=== PATIENT | female | born 1965 | race Caucasian/White ===

== ENCOUNTER 2016-09-18 09:42 | Outpatient (CLI) | payer MEDICAID | END 2016-09-18 09:43 | disposition home or self-care (01) | DX: R53.83 Other fatigue (principal) ==

== ENCOUNTER 2016-12-08 09:58 | Outpatient (CLI) | payer OTHER | END 2016-12-08 09:59 | disposition home or self-care (01) | DX: E04.9 Nontoxic goiter, unspecified (principal) ==

== ENCOUNTER 2017-02-24 16:45 | Outpatient (CLI) | payer OTHER ==
--- NOTE | 2017-02-25 12:27 | XRAY Report ---
TWO-VIEW CHEST: 02/24/2017 CLINICAL INDICATION: Cough. FINDINGS: Frontal and lateral views of the chest demonstrate a normal cardiac silhouette. The lungs are clear. No effusion or pneumothorax is present. IMPRESSION: NORMAL CHEST. JOB #: [id number] EXT JOB #:[id number]
== END 2017-02-24 16:46 | disposition home or self-care (01) ==
LOC: DI.S 16:45
PROVIDERS: ATTEND Nurse Practitioner Family
DX: R05 Cough (principal)
CPT/HCPCS: 71020

== ENCOUNTER 2018-06-27 08:00 | Outpatient (CLI) | payer MEDICAID, OTHER ==
[2018-06-27 18:04] LABS: BASOPHILS # (AUTO) 0.1 10^3/uL (0.0-0.1); BASOPHILS % (AUTO) 1.8 %; EOSINOPHILS # (AUTO) 0.1 10^3/uL (0.0-0.7); EOSINOPHILS % (AUTO) 2.2 %; HGB - HEMOGLOBIN 14.8 g/dL (12.0-16.0); LYMPHOCYTES # (AUTO) 1.8 10^3/uL (1.5-3.5); LYMPHOCYTES % (AUTO) 44.1 %; MEAN CORPUSCULAR HEMOGLOBIN 32.3 pg (27.0-31.0); MEAN CORPUSCULAR HGB CONC 33.5 g/dL (32.0-36.0); MEAN CORPUSCULAR VOLUME 96.4 fL (81.0-99.0); MEAN PLATELET VOLUME 9.3 fL (7.9-10.8); MONOCYTES # (AUTO) 0.3 10^3/uL (0.0-1.0); MONOCYTES % (AUTO) 8.4 %; NEUTROPHILS # (AUTO) 1.8 10^3/uL (1.5-6.6); NEUTROPHILS % (AUTO) 43.5 %; PLT - PLATELET COUNT 268 10^3/uL (130-450); RED BLOOD COUNT 4.58 10^6/uL (4.20-5.40); RED CELL DISTRIBUTION WIDTH 12.9 % (12.0-15.0); WHITE BLOOD COUNT 4.1 x10^3/uL (4.8-10.8)
[2018-06-27 18:21] LABS: ALBUMIN 4.1 g/dL (3.2-5.5); ALBUMIN/GLOBULIN RATIO 1.2 (1.0-2.2); ALKALINE PHOSPHATASE 57 IU/L (42-121); ALT ALANINE AMINOTRANSFERASE 34 IU/L (10-60); AST ASPARTATE AMINOTRANSFERASE 29 IU/L (10-42); BILIRUBIN,TOTAL 0.7 mg/dL (0.2-1.0); BUN - BLOOD UREA NITROGEN 19 mg/dL (6-20); CALCIUM 9.2 mg/dL (8.5-10.3); CARBON DIOXIDE - CO2 28 mmol/L (21-32); CHLORIDE 103 mmol/L (101-111); CHOL/HDL RATIO 3.4 (<4.4); CHOLESTEROL 213 mg/dL; CREATININE 0.5 mg/dL (0.4-1.0); GFR - MDRD 131 (>89); GLUCOSE 89 mg/dL (70-100); HDL CHOLESTEROL 62 mg/dL; LDL CHOLESTEROL,CALCULATED 141 mg/dL; LDL/HDL RATIO 2.3 (<4.4); SODIUM 136 mmol/L (135-145); TOTAL PROTEIN 7.6 g/dL (6.7-8.2); VLDL CHOLESTEROL 10 mg/dL
[2018-06-27 18:36] LABS: THYROID STIMULATING HORMONE 0.91 uIU/mL (0.34-5.60)
[2018-06-27 18:38] LABS: FREE T4 (FREE THYROXINE) 0.88 ng/dL (0.58-1.64)
== END 2018-06-27 23:59 | disposition home or self-care (01) ==
LOC: LAB.S 08:00
PROVIDERS: ATTEND Nurse Practitioner Family
DX: Z01.812 Encounter for preprocedural laboratory examination (principal); I10 Essential (primary) hypertension; Z13.220 Encounter for screening for lipoid disorders; E04.0 Nontoxic diffuse goiter; R53.83 Other fatigue
CPT/HCPCS: 36415; 80053; 80061; 83721; 84439; 84443; 84481; 85025

== ENCOUNTER 2019-04-26 11:04 | Outpatient (CLI) | payer MEDICAID ==
[2019-04-26 17:24] LABS: BASOPHILS # (AUTO) 0.1 10^3/uL (0.0-0.1); BASOPHILS % (AUTO) 1.2 %; EOSINOPHILS # (AUTO) 0.1 10^3/uL (0.0-0.7); EOSINOPHILS % (AUTO) 2.2 %; HGB - HEMOGLOBIN 14.4 g/dL (12.0-16.0); LYMPHOCYTES # (AUTO) 1.4 10^3/uL (1.5-3.5); LYMPHOCYTES % (AUTO) 34.1 %; MEAN CORPUSCULAR HEMOGLOBIN 32.7 pg (27.0-31.0); MEAN CORPUSCULAR VOLUME 96.4 fL (81.0-99.0); MEAN PLATELET VOLUME 10.9 fL (7.9-10.8); MONOCYTES # (AUTO) 0.4 10^3/uL (0.0-1.0); MONOCYTES % (AUTO) 9.1 %; NEUTROPHILS # (AUTO) 2.2 10^3/uL (1.5-6.6); NEUTROPHILS % (AUTO) 53.2 %; PLT - PLATELET COUNT 275 10^3/uL (130-450); RED CELL DISTRIBUTION WIDTH 12.3 % (12.0-15.0); WHITE BLOOD COUNT 4.1 x10^3/uL (4.8-10.8)
[2019-04-26 17:27] LABS: BILIRUBIN,URINE NEGATIVE (NEGATIVE); GLUCOSE, URINE (UA) NEGATIVE (NEGATIVE); KETONES,URINE (UA) NEGATIVE (NEGATIVE); LEUKOCYTE ESTERASE, URINE NEGATIVE (NEGATIVE); NITRITE,URINE NEGATIVE (NEGATIVE); OCCULT BLOOD,URINE NEGATIVE (NEGATIVE); PH,URINE 7.5 PH (5.0-7.5); PROTEIN,URINE NEGATIVE (NEGATIVE); UROBILINOGEN,URINE 0.2 (NORMAL) E.U./dL (NORMAL)
[2019-04-26 17:50] LABS: BACTERIA,URINE Moderate /HPF (None Seen); CLARITY,URINE CLEAR (CLEAR); RBC,URINE None Seen /HPF (0-5); SQUAMOUS EPITHELIAL CELL,UR MANY Squamous (<= Few)
[2019-04-26 17:51] LABS: HB2 TOTAL 14.6 g/dL; HEMOGLOBIN A1C 0.52 g/dL; HEMOGLOBIN A1C % 5.4 % (4.6-6.2)
[2019-04-26 17:55] LABS: THYROID STIMULATING HORMONE 0.88 uIU/mL (0.34-5.60)
[2019-04-26 17:57] LABS: FREE T4 (FREE THYROXINE) 0.95 ng/dL (0.58-1.64)
[2019-04-26 17:59] LABS: ALBUMIN 3.9 g/dL (3.2-5.5); ALBUMIN/GLOBULIN RATIO 1.1 (1.0-2.2); ALKALINE PHOSPHATASE 46 IU/L (42-121); ALT ALANINE AMINOTRANSFERASE 28 IU/L (10-60); AST ASPARTATE AMINOTRANSFERASE 27 IU/L (10-42); BILIRUBIN,TOTAL 0.8 mg/dL (0.2-1.0); BUN - BLOOD UREA NITROGEN 16 mg/dL (6-20); CALCIUM 8.8 mg/dL (8.5-10.3); CARBON DIOXIDE - CO2 28 mmol/L (21-32); CHLORIDE 101 mmol/L (101-111); CHOL/HDL RATIO 2.9 (<4.4); CHOLESTEROL 216 mg/dL; CREATININE 0.6 mg/dL (0.4-1.0); CRP HIGH SENSITIVITY 3.3 mg/L; GAMMA GLUTAMYL TRANSPEPTIDASE 26 IU/L (8-38); GFR - MDRD 105 (>89); GLUCOSE 98 mg/dL (70-100); HDL CHOLESTEROL 75 mg/dL; LDL CHOLESTEROL,CALCULATED 131 mg/dL; LDL/HDL RATIO 1.7 (<4.4); SODIUM 135 mmol/L (135-145); TOTAL PROTEIN 7.6 g/dL (6.7-8.2); VLDL CHOLESTEROL 10 mg/dL
[2019-04-26 18:02] LABS: FERRITIN 41.3 ng/mL (11.0-306.8); TOTAL T3 0.94 ng/mL (0.87-1.78)
[2019-04-27 10:11] LABS: HOMOCYSTEINE 10.3 umol/L (<10.4)
== END 2019-04-26 11:05 | disposition home or self-care (01) ==
LOC: LAB.S 11:04
PROVIDERS: ATTEND Family Medicine
DX: Z00.00 Encounter for general adult medical examination without abnormal findings (principal); E55.9 Vitamin D deficiency, unspecified; R94.5 Abnormal results of liver function studies; D64.9 Anemia, unspecified; D72.819 Decreased white blood cell count, unspecified; R53.83 Other fatigue; R94.6 Abnormal results of thyroid function studies; I10 Essential (primary) hypertension
CPT/HCPCS: 36415; 80053; 80061; 81001; 82306; 82626; 82728; 82977; 83036; 83090; 83721; 84439; 84443; 84480; 84481; 84482; 85025; 86141

== ENCOUNTER 2019-06-06 11:30 | Outpatient (CLI) | payer MEDICAID ==
--- NOTE | 2019-06-07 09:45 | XRAY Report ---
Reason: CHRONIC COUGH, R05 Procedure Date: 06/06/2019 Accession Number: [id number] / [id number] Procedure: XRS - Chest 2 View X-Ray CPT Code: 00085 Final Report FULL RESULT: EXAM: CHEST RADIOGRAPHY EXAM DATE: 06/06/2019 11:47 AM. CLINICAL HISTORY: CHRONIC COUGH, R05. COMPARISON: CHEST 2 VIEW PA/LAT 02/24/2017 4:58 PM. TECHNIQUE: 2 views. FINDINGS: Lungs/Pleura: No focal opacities evident. No pleural effusion. No pneumothorax. Normal volumes. Mediastinum: Heart and mediastinal contours are unremarkable. Other: Spine degenerative disk disease redemonstrated. IMPRESSION: No acute abnormality of the chest demonstrated. RADIA
== END 2019-06-06 11:31 | disposition home or self-care (01) ==
LOC: DI.S 11:30
PROVIDERS: ATTEND Naturopath
DX: R05 Cough (principal)
CPT/HCPCS: 71046

== ENCOUNTER 2019-11-09 17:16 | Outpatient (CLI) | payer MEDICAID | END 2019-11-09 17:17 | disposition home or self-care (01) | LOC: COV 17:16 | PROVIDERS: ATTEND Family Medicine | DX: R05 Cough (principal) | CPT/HCPCS: 81599 ==

== ENCOUNTER 2020-09-18 11:30 | Outpatient (CLI) | payer MEDICAID | END 2020-09-18 11:31 | disposition home or self-care (01) | LOC: COV 11:30 | PROVIDERS: ATTEND Internal Medicine Gastroenterology | DX: Z20.822 Contact with and (suspected) exposure to COVID-19 (principal) ==

== ENCOUNTER 2021-08-25 13:48 | Outpatient (CLI) | payer MEDICAID ==
--- NOTE | 2021-08-25 16:24 | XRAY Report ---
PROCEDURE: Shoulder 3 View RT INDICATIONS: CHRONIC LOW BACK PAIN, RIGHT SHOULDER PAIN TECHNIQUE: 3 views of the shoulder were acquired. COMPARISON: None. FINDINGS: Bones: No fractures or dislocations. No suspicious bony lesions. Visualized ribs appear intact. M ild periarticular osteophyte formation at the acromioclavicular and glenohumeral joints. Soft tissues: No suspicious soft tissue calcifications. IMPRESSION: 1. Osteoarthritis. 2. No acute fracture. No osseous lesion. If symptoms and/or clinical suspicion for pathology continue , further assessment with repeat plain films, or advanced imaging (e.g., CT, MRI, or bone scan) is re commended for further assessment. Reviewed by: Dez Fontana MD on 08/25/2021 4:23 PM PST Approved by: Dez Fontana MD on 08/25/2021 4:23 PM PST Station ID: [id number]
--- NOTE | 2021-08-25 17:24 | XRAY Report ---
PROCEDURE: SI Joints INDICATIONS: CHRONIC LOW BACK PAIN, RIGHT SHOULDER PAIN TECHNIQUE: 3 views of the sacroiliac joints were acquired. COMPARISON: None FINDINGS: Bones: No bony erosions or ankylosis. No suspicious bony lesions. No fractures. Severe L5-S1 degen erative disc changes. Moderate L4-L5 degenerative disc changes. Soft tissues: Overlying bowel gas pattern is normal. No suspicious soft tissue densities. Intrauter ine device projects over the mid pelvis. IMPRESSION: 1. Sacroiliac joints are normal in appearance. 2. Lumbar spine degenerative disc disease. Reviewed by: Trang Benítez MD, PhD on 08/25/2021 5:23 PM PST Approved by: Trang Benítez MD, PhD on 08/25/2021 5:23 PM PST Station ID: [id number]
--- NOTE | 2021-08-25 17:25 | XRAY Report ---
PROCEDURE: Hips 2V BILAT INDICATIONS: CHRONIC LOW BACK PAIN, RIGHT SHOULDER PAIN TECHNIQUE: 2 views of the right hip and left hip were acquired. COMPARISON: None FINDINGS: Bones: No fractures or dislocations. No suspicious bony lesions. The visualized pelvic ring appear s intact. Mild osseous hypertrophy noted in the hips bilaterally compatible with mild osteoarthritis. Degenerative disc changes noted in the lower lumbar spine. Soft tissues: No suspicious soft tissue calcifications or masses. IMPRESSION: Mild bilateral hip osteoarthritis. Reviewed by: Trang Benítez MD, PhD on 08/25/2021 5:24 PM PST Approved by: Trang Benítez MD, PhD on 08/25/2021 5:24 PM PST Station ID: [id number]
== END 2021-08-25 13:49 | disposition home or self-care (01) ==
LOC: DI.S 13:48
PROVIDERS: ATTEND Naturopath
DX: M25.811 Other specified joint disorders, right shoulder (principal); M16.0 Bilateral primary osteoarthritis of hip; M51.36 Other intervertebral disc degeneration, lumbar region; M51.37 Other intervertebral disc degeneration, lumbosacral region; M19.011 Primary osteoarthritis, right shoulder

== ENCOUNTER 2021-11-28 12:57 | Outpatient (CLI) | payer MEDICAID ==
--- NOTE | 2021-11-28 15:53 | XRAY Report ---
PROCEDURE: Shoulder 3 View LT INDICATIONS: CHRONIC LEFT SHOULDER PAIN TECHNIQUE: 3 views of the shoulder were acquired. COMPARISON: None. FINDINGS: Bones: No fractures or dislocations. Moderate acromioclavicular joint and glenohumeral joint osteoar thritic changes are seen. No suspicious bony lesions. Visualized ribs appear intact. Soft tissues: No suspicious soft tissue calcifications. IMPRESSION: Moderate left shoulder joint osteoarthritis. No fracture or dislocation. No gross soft t issue abnormality. Reviewed by: Keenan Fowler MD on 11/28/2021 3:52 PM PDT Approved by: Keenan Fowler MD on 11/28/2021 3:52 PM PDT Station ID: [id number]
--- NOTE | 2021-11-28 15:53 | XRAY Report ---
PROCEDURE: Chest 2 View X-Ray INDICATIONS: ABNORMAL LUNG SOUNDS IN LEFT UPPER LOBE TECHNIQUE: 2 view(s) of the chest. COMPARISON: None. FINDINGS: Surgical changes and devices: None. Lungs and pleura: No pleural effusions or pneumothorax. Lungs are clear. Mediastinum: Mediastinal contours are normal. Heart size is normal. Bones and chest wall: No suspicious bony abnormalities. Soft tissues appear unremarkable. IMPRESSION: No acute cardiopulmonary pathology. Reviewed by: Keenan Fowler MD on 11/28/2021 3:52 PM PDT Approved by: Keenan Fowler MD on 11/28/2021 3:52 PM PDT Station ID: [id number]
== END 2021-11-28 12:58 | disposition home or self-care (01) ==
LOC: DI.S 12:57
PROVIDERS: ATTEND Naturopath
DX: R09.89 Other specified symptoms and signs involving the circulatory and respiratory systems (principal); M19.012 Primary osteoarthritis, left shoulder

== ENCOUNTER 2023-12-16 14:14 | Outpatient (CLI) | payer MEDICAID ==
--- NOTE | 2023-12-16 17:37 | XRAY Report ---
Knee 3V RT HISTORY: 58 years of age, RIGHT KNEE PAIN TECHNIQUE: Knee 3V RT COMPARISON: None. FINDINGS/IMPRESSION: Small right knee effusion. Mild tricompartmental osteoarthritis. Small distal quadricep enthesophyte. No acute fracture or dislocation. Reviewed by: Kerri Orlando MD on 12/16/2023 5:36 PM PDT Approved by: Kerri Orlando MD on 12/16/2023 5:36 PM PDT Station ID: [id number]
--- NOTE | 2023-12-17 01:31 | XRAY Report ---
PROCEDURE: Hips w/Pelvis 2-3V BL INDICATIONS: L SIDED SCIATICA, L HIP PAIN, L KNEE PAIN TECHNIQUE: 2 view(s) of the hip were acquired. COMPARISON: None FINDINGS: Bones: No fractures or dislocations. No suspicious bony lesions. The visualized pelvic ring appear s intact. Mild degenerative changes noted in the lower lumbar spine Soft tissues: No suspicious soft tissue calcifications or masses. IMPRESSION: Mild degenerative changes lower lumbar spine. Otherwise unremarkable hip radiographs Reviewed by: Devan Craig MD on 12/17/2023 12:29 AM [facility]FF[facility] Approved by: Devan Craig MD on 12/17/2023 12:29 AM [facility] Station ID: [id number]
--- NOTE | 2023-12-17 01:38 | XRAY Report ---
PROCEDURE: Lumbar Spine 2-3V INDICATIONS: L SIDED SCIATICA, L HIP PAIN, L KNEE PAIN TECHNIQUE: 3 view(s) of the lumbar spine were acquired. COMPARISON: None. FINDINGS: Bones: Vertebral body height and alignment is maintained. No suspicious bony lesions. Disc space stephanie rowing and hypertrophic facet joints noted L4-5 and L5-S1 Soft tissues: Overlying bowel gas pattern is normal. No suspicious soft tissue calcifications. IMPRESSION: Degenerative disc disease and arthropathy in the lower lumbar spine Reviewed by: Devan Craig MD on 12/17/2023 12:37 AM [facility] Approved by: Devan Craig MD on 12/17/2023 12:37 AM [facility] Station ID: [id number]
== END 2023-12-16 14:15 | disposition home or self-care (01) ==
LOC: DI.S 14:14
PROVIDERS: ATTEND Family Medicine
DX: M54.32 Sciatica, left side (principal); M25.552 Pain in left hip; M47.816 Spondylosis without myelopathy or radiculopathy, lumbar region; M51.36 Other intervertebral disc degeneration, lumbar region; M25.461 Effusion, right knee; M17.11 Unilateral primary osteoarthritis, right knee; M76.9 Unspecified enthesopathy, lower limb, excluding foot

== ENCOUNTER 2024-04-11 14:29 | Outpatient (CLI) | payer MEDICAID ==
--- NOTE | 2024-04-12 11:27 | Mammography Report ---
BILATERAL DIGITAL SCREENING MAMMOGRAM 3D/2D: 04/11/2024 CLINICAL: Routine screening. Comparison is made to exams dated: 02/24/2022 mammogram and 10/08/2020 mammogram - [facility]. The breasts are almost entirely fatty (category a/<25% glandular tissue). No significant masses, calcifications, or other findings are seen in either breast. There has been no significant interval change. IMPRESSION: NEGATIVE There is no mammographic evidence of malignancy. A 1 year screening mammogram is recommended. Based on the Tyrer Cuzick model (a risk assessment model) the patient's lifetime risk is 6.2% and her 10 year risk is 2.0%. According to the ACR, ACS, and NCCN guidelines, an annual breast MRI exam vesna g with mammogram is recommended if the patient's lifetime risk is 20% or greater. This exam was interpreted at Station ID: [id number]. NOTE: For mammograms, a report in lay terms will be sent to the patient. Approximately 15% of breast malignancies will not be visualized mammographically. In the management of a palpable breast mass, a negative mammogram must not discourage biopsy of a clinically suspicious lesion. Electronically Signed By: Kaila crespo/paul:04/11/2024 17:16:02 letter sent: No_Letter ACR BI-RADS Category 1: Negative 3341F PARENCHYMAL PATTERN: (F) - The breast(s) demonstrate(s) diffuse fatty replacement. BI-RADS CATEGORY: (1) - 1 RECOMMENDATION: (ANNUAL) - Recommend routine annual screening mammography. [id number] 1 year screening LATERALITY: (B)
== END 2024-04-11 14:30 | disposition home or self-care (01) ==
LOC: DI 14:29
PROVIDERS: ATTEND Naturopath
DX: Z12.31 Encounter for screening mammogram for malignant neoplasm of breast (principal)